=== PATIENT | female | born 1990 | race Caucasian/White ===

== ENCOUNTER 2016-09-10 13:05 | Emergency (ER) | payer MEDICAID, OTHER ==
[~2016-09-10] VITALS: Ht 160 cm; Wt 66.0 kg
[2016-09-10 13:05] VITALS: BP 119/60; PULSE 98; RESP 16; TEMP 97.6; O2SAT 100
[~2016-09-10 13:05] MED LIST: PAXI20TA26 PO; PENI500T PO; PERC10TA27 PO
--- NOTE | 2016-09-10 13:14 | PD ---
HPI Chief Complaint: GI Complaint Time Seen by Provider: 13:11 Travel History International Travel<30 days: No Contact w/Intl Traveler<30days: No History of Present Illness HPI This is a 26-year-old female who presents to the emergency department with vomiting and some loose stools, feeling lightheaded like she is going to pass out, constant, lasting for about an hour. She says last night she drank several alcoholic beverages and then this morning she went to the gym and the leg workout. She says ever since then she's been feeling somewhat lightheaded like she is going to pass out. The symptoms worsen when she was driving home and have been compounded by some anxiety which she is prone to. She's not sure if she is . PFSH Past Medical History ADHD: Yes Bipolar Disorder: Yes Anxiety: Yes Depression: Yes Diminished Hearing: No Integumentary: Yes Immunizations Current: No : 0 Para: 0 Miscarriage: 0 : 0 Social History Alcohol Use: No Tobacco Use: No Substance Use: No Allergies-Medications (Allergen,Severity, Reaction): Coded Allergies: Erythromycin (Verified Adverse Reaction, Intermediate, VOMITING, 09/10/16) Reported Meds & Prescriptions Reported Meds & Active Scripts Active Pen Vk (Penicillin V Potassium) 500 Mg Tab 1 Tab PO Q6 Percocet 10/325 (Oxycodone/Acetaminophen) Tab 1 Tab PO Q6 FOR PAIN Paxil (Paroxetine HCl) 20 Mg Tab 20 Mg PO DAILY 7 Days Review of Systems Except as stated in HPI: all other systems reviewed are Neg Physical Exam Narrative GENERAL:Well appearing, no acute distress SKIN: Focused skin assessment warm and dry. HEAD: Atraumatic. Normocephalic. EYES: Pupils equal and round. No injection or drainage. ENT: Moist mucous membranes NECK: Trachea midline. CARDIOVASCULAR: Regular rate and rhythm. No murmur appreciated. RESPIRATORY: Clear to auscultation. Breath sounds equal bilaterally. GASTROINTESTINAL: Abdomen soft, non-tender, nondistended. MUSCULOSKELETAL: No obvious deformities. NEUROLOGICAL: Awake and alert. No obvious cranial nerve deficits. Moving all extremities. PSYCHIATRIC: Appropriate mood and affect; insight and judgment normal. Data Data Last Documented VS Vital Signs Date Time Temp Pulse Resp B/P Pulse Ox O2 Delivery O2 Flow Rate FiO2 09/10/16 13:05 97.6 98 16 119/60 100 Orders Electrocardiogram (09/10/16 ) Complete Blood Count With Diff (09/10/16 13:12) Comprehensive Metabolic Panel (09/10/16 13:12) Creatine Kinase (Cpk) (09/10/16 13:12) Sodium Chlor 0.9% 1000 Ml Inj (Ns 1000 M (09/10/16 13:15) Lorazepam Inj (Ativan Inj) (09/10/16 13:15) Ondansetron Inj (Zofran Inj) (09/10/16 13:15) Ed Urine Pregnancytest Poc (09/10/16 13:15) CKMB (09/10/16 13:20) CKMB% (09/10/16 13:20) Labs Laboratory Tests Test 09/10/16 13:20 White Blood Count 8.6 TH/MM3 Red Blood Count 4.36 MIL/MM3 Hemoglobin 12.8 GM/DL Hematocrit 38.2 % Mean Corpuscular Volume 87.4 FL Mean Corpuscular Hemoglobin 29.4 PG Mean Corpuscular Hemoglobin 33.6 % Concent Red Cell Distribution Width 12.1 % Platelet Count 241 TH/MM3 Mean Platelet Volume 7.6 FL Neutrophils (%) (Auto) 72.9 % Lymphocytes (%) (Auto) 14.7 % Monocytes (%) (Auto) 9.0 % Eosinophils (%) (Auto) 0.5 % Basophils (%) (Auto) 2.9 % Neutrophils # (Auto) 6.2 TH/MM3 Lymphocytes # (Auto) 1.3 TH/MM3 Monocytes # (Auto) 0.8 TH/MM3 Eosinophils # (Auto) 0.0 TH/MM3 Basophils # (Auto) 0.2 TH/MM3 CBC Comment DIFF FINAL Differential Comment Sodium Level 137 MEQ/L Potassium Level 4.3 MEQ/L Chloride Level 101 MEQ/L Carbon Dioxide Level 25.2 MEQ/L Anion Gap 11 MEQ/L Blood Urea Nitrogen 14 MG/DL Creatinine 0.67 MG/DL Estimat Glomerular Filtration 106 ML/MIN Rate Random Glucose 106 MG/DL Calcium Level 8.9 MG/DL Total Bilirubin 0.6 MG/DL Aspartate Amino Transf 31 U/L (AST/SGOT) Alanine Aminotransferase 26 U/L (ALT/SGPT) Alkaline Phosphatase 38 U/L Total Creatine Kinase 206 U/L Creatine Kinase MB 1.1 NG/ML Creatine Kinase MB % 0.5 % Total Protein 7.4 GM/DL Albumin 3.7 GM/DL MDM Medical Decision Making Medical Screen Exam Complete: Yes Emergency Medical Condition: Yes Interpretation(s) Afebrile, mild tachycardia, normotensive No leukocytosis Electrolytes are reassuring Differential Diagnosis Dehydration, rhabdomyolysis, arrhythmia, electrolyte abnormality, Narrative Course This is a 26-year-old female who presents to the emergency department having had an episode of vomiting and loose stool followed by lightheadedness after drinking alcohol last evening and doing a leg workout this morning at the gym. She was placed on a monitor and an IV was established. Labs were obtained which were all reassuring. test was negative. Patient feels much better after IV fluids. She'll be discharged home. Diagnosis Primary Impression: Dehydration Patient Instructions: General Instructions Additional Instructions: If you develop severe chest pain, shortness of breath, sweating, lightheadedness , dizziness or difficulty breathing return to the emergency department immediately. Followup with your primary care physician in 2-3 days if your symptoms are not resolved. Med/Other Pt SpecificInfo: No Change to Meds Disposition: 01 DISCHARGE HOME Condition: Stable Kat Kim MD Sep 10, 2016 13:14
[2016-09-10] MEDS ORDERED: ONDANSETRON HCL 4 MG/2 ML VIAL IV PUSH ONE (13:15)
[2016-09-10] MEDS ORDERED: LORazepam 2 MG/ML VIAL IV PUSH ONE (13:15)
[2016-09-10] MEDS ORDERED: SODIUM CHLOR 0.9% 1000 ML INJ 1,000 ML IV ONE (13:15)
[2016-09-10 13:33] LABS: AUTOMATED NEUTROPHIL # 6.2 TH/MM3 (1.8-7.7); BASOPHIL # 0.2 TH/MM3 (0-0.2); BASOPHIL % 2.9 % (0.0-2.0); EOSINOPHIL % 0.5 % (0.0-4.0); HEMATOCRIT 38.2 % (35.0-46.0); HEMO FLAGS DIFF FINAL; LYMPH % 14.7 % (9.0-44.0); LYMPHOCYTE # 1.3 TH/MM3 (1.0-4.8); MEAN CELL VOLUME 87.4 FL (80.0-100.0); MEAN CORPUSCULAR HEMOGLOBIN 29.4 PG (27.0-34.0); MEAN CORPUSCULAR HGB CONC 33.6 % (32.0-36.0); NEUT % 72.9 % (16.0-70.0); PLATELET COUNT 241 TH/MM3 (150-450); RED BLOOD COUNT 4.36 MIL/MM3 (4.00-5.30); RED CELL DISTRIBUTION WIDTH 12.1 % (11.6-17.2); WHITE BLOOD COUNT 8.6 TH/MM3 (4.0-11.0)
[2016-09-10 13:42] LABS: CHLORIDE 101 MEQ/L (98-107); SODIUM (NA) 137 MEQ/L (136-145)
[2016-09-10 13:46] LABS: ANION GAP 11 MEQ/L (5-15); BICARBONATE 25.2 MEQ/L (21.0-32.0); BLOOD UREA NITROGEN 14 MG/DL (7-18)
[2016-09-10 13:49] LABS: ALT (GPT) 26 U/L (10-53); AST (GOT) 31 U/L (15-37); GLOMERULAR FILTRATION RATE 106 ML/MIN (>89); POTASSIUM 4.3 MEQ/L (3.5-5.1)
[2016-09-10 13:51] LABS: TOTAL BILIRUBIN ADULT 0.6 MG/DL (0.2-1.0)
[2016-09-10 13:52] LABS: ALKALINE PHOSPHATASE 38 U/L (45-117); CREATINE KINASE 206 U/L (26-192)
[2016-09-10 14:16] LABS: CKMB 1.1 NG/ML (0.5-3.6)
[2016-09-10 14:23] VITALS: BP 103/55; PULSE 94; RESP 16; O2SAT 99
[2016-09-10] MEDS ORDERED: ONDANSETRON HCL 4 MG/2 ML VIAL IV ONE (14:30)
--- NOTE | 2016-09-11 00:03 | EKG ---
Date Performed: 09/10/2016 Time Performed: 13:15:54 PTAGE: 26 years EKG: Sinus rhythm Normal ECG PREVIOUS TRACING : 10/08/2009 18.11 DOCTOR: Chelo Sandoval Interpretating Date/Time 09/11/2016 00:01:43
== END 2016-09-10 14:39 | disposition home or self-care (01) ==
LOC: PHED 13:05
DX: E86.0 Dehydration (principal); R11.10 Vomiting, unspecified; R19.7 Diarrhea, unspecified; R00.0 Tachycardia, unspecified; F31.9 Bipolar disorder, unspecified; F90.9 Attention-deficit hyperactivity disorder, unspecified type; F41.9 Anxiety disorder, unspecified
CPT/HCPCS: 80053; 82550; 82552; 84703; 85025; 93005; 96361; 96374; 96376; 99284; J2405; J7030

== ENCOUNTER 2017-11-08 09:11 | Emergency (ER) | payer MEDICAID ==
[~2017-11-08] VITALS: Ht 160 cm; Wt 66.0 kg
[2017-11-08 09:26] VITALS: BP 116/62; PULSE 86; RESP 18; TEMP 98.1; O2SAT 100
[2017-11-08] MEDS ORDERED: SODIUM CHLORIDE 0.9% FLUSH 10 ML FLUSH IV FLUSH PRN (09:45)
[2017-11-08] MEDS ORDERED: ONDANSETRON ODT 4 MG TAB PO ONE (09:45)
[2017-11-08 10:02] LABS: AUTOMATED NEUTROPHIL # 2.4 TH/MM3 (1.8-7.7); BASOPHIL % 0.9 % (0.0-2.0); EOSINOPHIL # 0.1 TH/MM3 (0-0.4); EOSINOPHIL % 2.7 % (0.0-4.0); HEMATOCRIT 38.3 % (35.0-46.0); LYMPH % 29.9 % (9.0-44.0); LYMPHOCYTE # 1.4 TH/MM3 (1.0-4.8); MEAN CELL VOLUME 89.6 FL (80.0-100.0); MEAN CORPUSCULAR HEMOGLOBIN 30.4 PG (27.0-34.0); MEAN CORPUSCULAR HGB CONC 33.9 % (32.0-36.0); MEAN PLATELET VOLUME 7.5 FL (7.0-11.0); MONO % 14.4 % (0.0-8.0); MONOCYTE # 0.7 TH/MM3 (0-0.9); NEUT % 52.1 % (16.0-70.0); PLATELET COUNT 250 TH/MM3 (150-450); RED BLOOD COUNT 4.28 MIL/MM3 (4.00-5.30); RED CELL DISTRIBUTION WIDTH 12.4 % (11.6-17.2); WHITE BLOOD COUNT 4.6 TH/MM3 (4.0-11.0)
[2017-11-08 10:06] LABS: BILIRUBIN, URINE NEG (NEG); BLOOD, URINE LARGE (NEG); GLUCOSE,URINE NEG (NEG); KETONE, URINE 15 mg/dL (NEG); NITRITE,URINE NEG (NEG); URINE COLOR YELLOW (YELLW/STRAW); URINE LEUKOCYTE ESTERASE NEG (NEG)
[2017-11-08 10:07] VITALS: RESP 16; O2SAT 100
[2017-11-08 10:14] LABS: CHLORIDE 106 MEQ/L (98-107); SODIUM (NA) 141 MEQ/L (136-145)
[2017-11-08 10:18] LABS: CALCIUM 8.9 MG/DL (8.5-10.1)
--- NOTE | 2017-11-08 10:18 | PD ---
HPI Chief Complaint: Abdominal Pain Time Seen by Provider: 10:18 Travel History International Travel<30 days: No Contact w/Intl Traveler<30days: No Traveled to known affect area: No History of Present Illness HPI 27-year-old female came to the emergency room with history of right lower quadrant pain starting yesterday. Patient says the pain is severe. She occasionally can feel a lump in that area which has been going on for past quite a few months. However this pain is new. Patient says she was out last night and at dinner and had few drinks. The pain started to worsen the night. No history of vaginal discharge or bleeding. Patient just finished her menstrual cycle couple days ago. Bedside urine test was negative. No history of nausea vomiting. No history of fever or chills. No history of dysuria. No history of hematuria. Patient has history of chlamydia couple years ago but says that her and her partner were both treated. She has unprotected sex with the same partner for the past 5 years. PFSH Past Medical History Narrative Medical List of her past medical, surgical, social and family history is reviewed from the nursing note. Hx Anticoagulant Therapy: No ADHD: Yes Bipolar Disorder: Yes Anxiety: Yes Depression: Yes Cardiovascular Problems: No Chemotherapy: No Cerebrovascular Accident: No Diabetes: No Diminished Hearing: No Respiratory: No Integumentary: Yes Immunizations Current: No Influenza Vaccination: No ?: Not LMP: 10/31/17 : 0 Para: 0 Miscarriage: 0 : 0 Past Surgical History Hysterectomy: No Social History Alcohol Use: Yes (SOCIALLY) Tobacco Use: No Substance Use: No Allergies-Medications (Allergen,Severity, Reaction): Coded Allergies: erythromycin base (Unverified Adverse Reaction, Intermediate, VOMITING, ) Comments List of her allergies reviewed from the nursing note. Reported Meds & Prescriptions Reported Meds & Active Scripts Active Ibuprofen 600 Mg Tab 600 Mg PO Q6H PRN Narrative Medication List of her home medications reviewed from the nursing note. Review of Systems Except as stated in HPI: all other systems reviewed are Neg Gastrointestinal: Positive: Abdominal Pain Physical Exam Narrative GENERAL: Awake, alert, moderate distress SKIN: Focused skin assessment warm/dry. HEAD: Atraumatic. Normocephalic. EYES: Pupils equal and round. No scleral icterus. No injection or drainage. ENT: No nasal bleeding or discharge. Mucous membranes pink and moist. NECK: Trachea midline. No JVD. CARDIOVASCULAR: Regular rate and rhythm. No murmur appreciated. RESPIRATORY: No accessory muscle use. Clear to auscultation. Breath sounds equal bilaterally. GASTROINTESTINAL: Abdomen soft, non-tender, nondistended. Hepatic and splenic margins not palpable. : External inspection within normal limits. Speculum exam shows normal vaginal discharge, normal looking cervix, no CMT or adnexal tenderness MUSCULOSKELETAL: No obvious deformities. No clubbing. No cyanosis. No edema. NEUROLOGICAL: Awake and alert. No obvious cranial nerve deficits. Motor grossly within normal limits. Normal speech. PSYCHIATRIC: Appropriate mood and affect; insight and judgment normal. Data Data Last Documented VS Vital Signs Date Time Temp Pulse Resp B/P (MAP) Pulse Ox O2 Delivery O2 Flow Rate FiO2 11/08/17 13:33 11/08/17 12:40 16 11/08/17 12:15 70 99 Room Air 11/08/17 09:26 98.1 Orders Orders Complete Blood Count With Diff (11/08/17 09:40) Comprehensive Metabolic Panel (11/08/17 09:40) Lipase (11/08/17 09:40) Prothrombin Time / Inr (Pt) (11/08/17 09:40) Act Partial Throm Time (Ptt) (11/08/17 09:40) Urinalysis - C+S If Indicated (11/08/17 09:40) Iv Access Insert/Monitor (11/08/17 09:40) Ecg Monitoring (11/08/17 09:40) Oximetry (11/08/17 09:40) Sodium Chloride 0.9% Flush (Ns Flush) (11/08/17 09:45) Ed Urine Pregnancytest Poc (11/08/17 09:40) Ondansetron Odt (Zofran Odt) (11/08/17 09:45) Ct Abd/Pel W Iv Contrast(Rout) (11/08/17 09:40) Iohexol 350 Inj (Omnipaque 350 Inj) (11/08/17 10:28) Us Pelvis Comp Pouncing Lathe Operator/Non-Preg (11/08/17 ) Gc And Chlamydia Pcr (11/08/17 11:22) Wet Prep Profile (11/08/17 11:22) Ketorolac Inj (Toradol Inj) (11/08/17 11:30) Ed Discharge Order (11/08/17 13:24) Mandatory Outpatient Referral (11/08/17 13:24) Labs Laboratory Tests Test 11/08/17 09:45 11/08/17 09:50 11/08/17 12:15 Urine Collection Type CLEAN CATCH Urine Color YELLOW Urine Turbidity CLEAR Urine pH 6.0 Urine Specific [place] GREATER/EQUAL 1.030 Urine Protein NEG mg/dL Urine Glucose (UA) NEG mg/dL Urine Ketones 15 mg/dL Urine Occult Blood LARGE Urine Nitrite NEG Urine Bilirubin NEG Urine Urobilinogen 0.2 MG/DL Urine Leukocyte Esterase NEG Urine RBC 15-19 /hpf Urine WBC 0-2 /hpf Urine Squamous Epithelial Cells > 8 /hpf Urine Bacteria FEW /hpf Microscopic Urinalysis Comment CULT NOT INDICATED White Blood Count 4.6 TH/MM3 Red Blood Count 4.28 MIL/MM3 Hemoglobin 13.0 GM/DL Hematocrit 38.3 % Mean Corpuscular Volume 89.6 FL Mean Corpuscular Hemoglobin 30.4 PG Mean Corpuscular Hemoglobin Concent 33.9 % Red Cell Distribution Width 12.4 % Platelet Count 250 TH/MM3 Mean Platelet Volume 7.5 FL Neutrophils (%) (Auto) 52.1 % Lymphocytes (%) (Auto) 29.9 % Monocytes (%) (Auto) 14.4 % Eosinophils (%) (Auto) 2.7 % Basophils (%) (Auto) 0.9 % Neutrophils # (Auto) 2.4 TH/MM3 Lymphocytes # (Auto) 1.4 TH/MM3 Monocytes # (Auto) 0.7 TH/MM3 Eosinophils # (Auto) 0.1 TH/MM3 Basophils # (Auto) 0.0 TH/MM3 CBC Comment DIFF FINAL Differential Comment Prothrombin Time 9.9 SEC Prothromb Time International Ratio 1.0 RATIO Activated Partial Thromboplast Time 25.7 SEC Blood Urea Nitrogen 14 MG/DL Creatinine 0.55 MG/DL Random Glucose 91 MG/DL Total Protein 7.3 GM/DL Albumin 3.7 GM/DL Calcium Level 8.9 MG/DL Alkaline Phosphatase 39 U/L Aspartate Amino Transf (AST/SGOT) 52 U/L Alanine Aminotransferase (ALT/SGPT) 65 U/L Total Bilirubin 0.3 MG/DL Sodium Level 141 MEQ/L Potassium Level 3.7 MEQ/L Chloride Level 106 MEQ/L Carbon Dioxide Level 26.1 MEQ/L Anion Gap 9 MEQ/L Estimat Glomerular Filtration Rate 133 ML/MIN Lipase 134 U/L Clue Cells (Wet Prep) NONE SEEN Vaginal Trichomonas (Wet Prep) NONE SEEN Vaginal Yeast (Wet Prep) NONE SEEN Chlamydia trachomatis DNA (PCR) NOT DETECTED Neisseria gonorrhoeae DNA (PCR) NOT DETECTED MDM Medical Decision Making Medical Screen Exam Complete: Yes Emergency Medical Condition: Yes Medical Record Reviewed: Yes Differential Diagnosis Acute appendicitis, UTI, renal colic Narrative Course 12:27 PM blood test showed slightly elevated liver function tests which could be from the alcohol consumption recently. Rest of the blood test results are within normal limits. UA shows some RBCs but otherwise negative. CT scan showed a right adnexal complex mass. I have ordered an ultrasound which has been done. Awaiting for the ultrasound report. Wet mount was negative. GC chlamydia is pending. 1:09 PM still waiting for the ultrasound report to be read by the radiologist. 1:25 PM ultrasound report shows a large right ovarian septal cyst. There is good flow to the ovaries otherwise. I will discharge her home. Procedures EKG Prior to Arrival: No Diagnosis Primary Impression: Pelvic pain Additional Impression: Ovarian cyst Qualified Codes: N83.201 - Unspecified ovarian cyst, right side Referrals: Jose Ramos MD 3 days Additional Instructions: Take the medication for pain as per prescription direction. Follow-up with the [facility] [facility] who is name and number been provided to you. You need to call them to make an appointment. Med/Other Pt SpecificInfo: Prescription(s) given Scripts Ibuprofen (Ibuprofen) 600 Mg Tab 600 MG PO Q6H Y for Pain/Inflammation, #40 TAB 0 Refills Prov: Jeannette Chaparro MD 11/08/17 Disposition: DISCHARGE HOME Condition: Stable Jeannette Chaparro MD November 08, 2017 10:18
[2017-11-08 10:19] LABS: BACTERIA, URINE FEW /hpf; RBC, URINE 15-19 /hpf (0-3); SQUAMOUS EPITHELIAL CELL URINE > 8 /hpf (0-5); WBC, URINE 0-2 /hpf (0-5)
[2017-11-08 10:19] LABS: ALBUMIN 3.7 GM/DL (3.4-5.0); BICARBONATE 26.1 MEQ/L (21.0-32.0); BLOOD UREA NITROGEN 14 MG/DL (7-18); GLUCOSE,RANDOM 91 MG/DL (74-106); PROTHROMBIN TIME - PATIENT 9.9 SEC (9.8-11.6)
[2017-11-08 10:21] LABS: ALT (GPT) 65 U/L (10-53); AST (GOT) 52 U/L (15-37)
[2017-11-08 10:22] LABS: CREATININE 0.55 MG/DL (0.50-1.00); GLOMERULAR FILTRATION RATE 133 ML/MIN (>89)
[2017-11-08 10:23] LABS: TOTAL BILIRUBIN ADULT 0.3 MG/DL (0.2-1.0); TOTAL PROTEIN 7.3 GM/DL (6.4-8.2)
[2017-11-08 10:24] LABS: ALKALINE PHOSPHATASE 39 U/L (45-117)
[2017-11-08] MEDS ORDERED: IOHEXOL 350 MG/ML 10 ML VIAL (for RAD DIAG) IVCONTRAST ONE (10:28)
--- NOTE | 2017-11-08 10:44 | RADRPT ---
EXAM DATE: 11/08/2017 10:27 AM EDT AGE/SEX: 27 years / Female INDICATIONS: Right lower quadrant pain. CLINICAL DATA: This is the patient's initial encounter. Patient reports that signs and symptoms have been present for 1 day and indicates a pain score of 9/10. MEDICAL/SURGICAL HISTORY: None. None. ORAL CONTRAST: No oral contrast ingested. RADIATION DOSE: 8.10 CTDI (mGy) COMPARISON: No prior [facility] exams available for comparison. TECHNIQUE: Multiple contiguous axial images were obtained through the abdomen and pelvis following b olus infusion of 90 ml Omnipaque 350 (iohexol) nonionic water-soluble contrast as a single exam dos e. No oral contrast ingested. Using automated exposure control and adjustment of the mA and/or kV ac cording to patient size, the radiation dose was kept as low as reasonably achievable to obtain optima l diagnostic quality images. FINDINGS: The lower lungs are clear. Moderate fatty replacement in the liver. Gallbladder contracted without inflammatory changes Spleen and pancreas unremarkable Symmetrical renal function without renal mass Adrenal glands appear normal In the right lower quadrant there is a normal-appearing appendix without inflammatory changes. The remainder of the colon appears unremarkable. There is a large prominent apparent fibroid uterus or complex mass in the right adnexa region measuri ng 5.4 cm. There is no free fluid In the left adnexa region is unremarkable There are no inflammatory changes in the pelvis The abdominal cedeño intact Review of bone windows reveals only degenerative changes. CONCLUSION: 1. Complex mass right adnexa region, probably fibroid uterus. Other pathology cannot be entirely exc luded. 2. There are no inflammatory changes to suggest an appendicitis or diverticulitis. Electronically signed by: Dexter Aguilar MD 11/08/2017 10:43 AM EDT
[2017-11-08 11:08] VITALS: BP 100/64; PULSE 73; RESP 16; O2SAT 99
[2017-11-08] MEDS ORDERED: KETOROLAC TROMETHAMINE 30 MG/ML (IVP) VIAL IV PUSH ONE (11:30)
[2017-11-08 12:15] VITALS: BP 111/61; PULSE 70; RESP 16; O2SAT 99
[2017-11-08 12:40] VITALS: RESP 16
--- NOTE | 2017-11-08 13:22 | RADRPT ---
EXAM DATE: 11/08/2017 12:11 PM EDT AGE/SEX: 27 years / Female INDICATIONS: Right lower quadrant pain. Abnormal CT scan. CLINICAL DATA: This is the patient's initial encounter. Patient reports that signs and symptoms have been present for 1 day and indicates a pain score of 8/10. MEDICAL/SURGICAL HISTORY: . Bipolar. None. COMPARISON: [facility], CT ABDOMEN & PELVIS W CONTRAST, 11/08/2017. . MEASUREMENTS: Uterus:__7.9 x 3.8 x 3.4 cm Endometrial Stripe:__6 mm Right Ovary:__ 2.9 Left Ovary:__ 2.3 x 2.6 x 4.8 cm FINDINGS: Uterus: The myometrium has homogeneous echotexture without mass. Right Ovary: Right ovary measures 2.9 cm. Multiple cysts are evident, measuring 2.9 cm and 3.9 cm re spectively. Septations are evident. Left Ovary: Left ovary measures 4.8 cm without cyst. Other: No free fluid. CONCLUSION: 1. Septated cyst on the right. 2. Symmetrical blood flow to both. Electronically signed by: Dexter Aguilar MD 11/08/2017 1:20 PM EDT
[2017-11-08] MEDS ORDERED: IBUP-232 PO (13:26)
== END 2017-11-08 13:43 | disposition home or self-care (01) ==
LOC: PHED 09:11
DX: R10.2 Pelvic and perineal pain (principal); N83.201 Unspecified ovarian cyst, right side; F90.9 Attention-deficit hyperactivity disorder, unspecified type; F31.9 Bipolar disorder, unspecified; F41.9 Anxiety disorder, unspecified
CPT/HCPCS: 74177; 76856; 80053; 81001; 83690; 84703; 85025; 85610; 85730; 87210; 87491; 87591; 99285; J1885; Q9967